=== PATIENT | male | born 1945 | race African-American/Black ===

== ENCOUNTER 2017-02-17 09:50 | Emergency (ER) | payer OTHER ==
[2017-02-17 09:56] VITALS: BP 140/86; BMI 28.6
[2017-02-17] MEDS ORDERED: TORADOL 60 MG VIAL IM ONE (10:26)
--- NOTE | 2017-02-17 10:26 | DR.EXTPAIN ---
HPI - Time seen Time seen: 10:20 - PCP Primary Care Physician: NFD - Complaint/Symptoms Chief Complaint Doctor Comments: patient admits to arthritis of left knee, has been hurting for six days, recently came to area to look for housing planning to move to [facility]. Chief Complaint:: PT STATES " THIS O LEG HAS BEEN PAINING ME FOR A FEW DAYS " PT DENIES ANY INJURY ,, NO EDEMA , SWELLNG OR DEFORMITY NOTED,, PT STATTES " ITS MY LEFT KNEE IT MAY BE GOING OUT I HAVE ALREADY HAD SURGERY ON THE OTHER ONE ".. Self Treatment fo Chief Complaint: BC POWDERS , PT IS USING A CRUTCH - Source History Provided: Patient - Mode of arrival Mode of Arrival: Ambulatory - Timing Onset of Chief Complaint: 02/14/17 PMH - PMH Past Medical History: No Past Medical History Comment: BURNING IN THE FEET I THINK I MAY HAVE SURGAR. Past Surgical History: Yes Past Surgical History Comment: KNEE, ANKLE - Family History History of Family Medical Conditions: Yes Family Medical History: Cancer - Social History Does patient currently use any type of tobacco product: Yes Have you used tobacco products in the last 12 months: Yes Type of Tobacco Use: Cigarettes How many years tobacco product used: 52 Does any household member use tobacco: No Alcohol Use: Rarely Do you use any recreational Drugs:: No Lives With: Family Lives Where: Home - infectious screening In the last 2 months have you had wt loss of >10#?: NO Have you had fever, night sweats or hemotysis?: No Have you traveled outside the country in the last 6 months?: No Isolation: Standard ROS - Review of Systems Constitutional: No Symptoms Reported Eyes: No Symptoms Reported ENTM: No Symptoms Reported Respiratoy: No Symptoms Reported Cardiovascular: No Symptoms Reported Gastrointestinal/Abdominal: No Symptoms Reported Genitourinary: No Symptoms Reported Neurological: No Symptoms Reported Musculoskeletal: Left, Knee (pain) Integumentary: No Symptoms Reported Hematologic/Lymphatic: No Symptoms Reported Endocrine: No Symptoms Reported Psychiatric: No Symptoms Reported All Other Systems: Reviewed and Negative PE - Vital Signs Vitals: Temperature 98.4 F Pulse Rate 94 Respiratory Rate 22 Blood Pressure 140/86 O2 Sat by Pulse Oximetry 95 - General General Appearance: Alert, In No Apparent Distress - Head Head Exam: Normal Inspection, Atraumatic - Eyes Eye exam: Normal Appearance, PERRL, EOMI - ENT ENT Exam: Normal Exam - Neck Neck Exam: Normal Inspection, Full ROM - Chest Chest Inspection: Normal Inspection - Respiratory Respiratory Exam: Normal Lung Sounds Bilat Respiratory Exam: Bilateral Clear to Auscultation - Cardiovascular Cardiovascular Exam: Regular Rate, Normal Rhythm - Abdominal Exam Abdominal Exam: Normal Inspection Abdominal Tenderness: negative: RUQ, RLQ, LUQ, LLQ, Epigastrium, Suprapubic, Diffuse, Mild, Moderate, Severe, Other - Extremities Extremities Exam: Normal Inspection, Full ROM - Upper Extremities Shoulder Exam: Normal Inspection, Full ROM Arm Exam: Normal Inspection Elbow Exam: Normal Inspection Forearm Exam: Normal Inspection Hand Exam: Normal Inspection Neuromotor Exam: Normal Exam Neurosensory Exam: Normal Exam Hand Tendon Exam: Flexor Digitorium Profundus (Location) Upper Ext. Vascular Exam: Capillary Refill - Lower Extremities Hip/Pelvis Exam: Normal Inspection, Full ROM Upper Leg Exam: Normal Inspection Knee Exam: Normal Inspection, Tenderness (superior) Lower Leg Exam: Normal Inspection Ankle Exam: Normal Inspection Foot/Toe Exam: Normal Inspection Neurovascular/Tendon Exam: Normal Capillary Refill Gait Exam: Observed and Normal - Back Back Exam: Normal Inspection, (R) CVA Tenderness - Neurological Neurological Exam: Alert, Oriented X3, CN II-XII Intact - Psychiatric Psychiatric Exam: Normal Affect - Skin Skin Exam: Warm, Dry, Intact Type of Lesion: Rash Distribution: Generalized ROR - XRAY XRAY Interpreted by: Radiologist (Mild patellofemoral and medial femorotibial compartment osteoarthrosis without acute fracture) - Diagnosis Discharge Problem: Osteoarthritis Qualifiers: Osteoarthritis location: knee Osteoarthritis type: unspecified Laterality: left Qualified Code(s): M17.12 - Unilateral primary osteoarthritis, left knee - Discharge Plan Condition: Stable - Follow ups/Referrals Follow ups/Referrals: NFD,None [Primary Care Provider] - 3 days - Instructions
[2017-02-17] MEDS ORDERED: TORADOL 60 MG VIAL ONE (10:37)
--- NOTE | 2017-02-17 11:33 | RAD ---
Three views of the left knee Indication: Left knee pain without injury Findings: There is mild patellofemoral and medial femorotibial compartment joint space loss and oste ophyte formation. No acute fracture or dislocation. No suprapatellar joint effusion. Moderate calcif ied atherosclerotic disease of the SFA. Impression: Mild patellofemoral and medial femorotibial compartment osteoarthrosis without acute fra cture, dislocation or suprapatellar joint effusion. Reported By:
== END 2017-02-17 11:41 | disposition home or self-care (01) ==
LOC: ER 10:08
DX: M17.12 Unilateral primary osteoarthritis, left knee (principal)
CPT/HCPCS: 73560; 96372; 99282; J1885

== ENCOUNTER 2017-08-12 11:07 | Emergency (ER) | payer MEDICAID, OTHER ==
[2017-08-12 11:11] VITALS: BP 137/71; BMI 28.1
[2017-08-12] MEDS ORDERED: TORADOL 60 MG VIAL IM ONE (12:23)
--- NOTE | 2017-08-12 12:25 | DR.TOOTHHP ---
HPI - Time Seen Time seen: 12:20 - Primary Care Physician Primary Care Physician: NFD - Complaints Chief Complaint Doctors Comments: Patient with dental caries complaint of toothache. Chief Complaint:: PATIENT STATED THAT HE HAS HAD A TOOTHACHE ALL LAST NIGHT AND THAT HIS LEFT LEG IS HURTING. - Source History Provided: Patient - Mode of Arrival Mode of Arrival: Ambulatory - Timing Onset of Chief Complaint: 08/12/17 PMH - PMH Past Medical History: No Past Surgical History: Yes Surgical History: Ortho Surgery - Family History History of Family Medical Conditions: No Family Medical History: Cancer - Social History Does patient currently use any type of tobacco product: Yes Have you used tobacco products in the last 12 months: Yes Type of Tobacco Use: Cigarettes Does any household member use tobacco: No Alcohol Use: Heavy Do you use any recreational Drugs:: No Lives With: Family Lives Where: Home - infectious screening In the last 2 months have you had wt loss of >10#?: NO Have you had fever, night sweats or hemotysis?: No Have you traveled outside the country in the last 6 months?: No Isolation: Standard ROS - Review of Systems Eyes: No Symptoms Reported ENTM: No Symptoms Reported Respiratoy: No Symptoms Reported Cardiovascular: No Symptoms Reported Gastrointestinal/Abdominal: No Symptoms Reported Genitourinary: No Symptoms Reported Neurological: No Symptoms Reported Musculoskeletal: No Symptoms Reported Integumentary: No Symptoms Reported Hematologic/Lymphatic: No Symptoms Reported Endocrine: No Symptoms Reported Psychiatric: No Symptoms Reported All Other Systems: Reviewed and Negative PE - Vital Signs Vitals: Temperature 98.1 F Pulse Rate 98 Respiratory Rate 20 Blood Pressure 137/71 O2 Sat by Pulse Oximetry 99 - General Limitations: No Limitations General Appearance: Alert, In No Apparent Distress - Head Head Exam: Normal Inspection, Atraumatic - Eyes Eye exam: Normal Appearance, PERRL, EOMI - ENT ENT Exam: Normal Exam, Normal Oropharynx External Ear Exam: Normal External Inspection TM/Canal Exam: Bilateral Normal Nose Exam: Normal Nose Exam, Sinus Tenderness Mouth Exam: Normal Inspection Teeth Exam: Dental Caries (multiple) Throat Exam: Normal Inspection - Neck Neck Exam: Normal Inspection - Chest Chest Inspection: Normal Inspection, Symmetric Chest Wall Rise - Respiratory Respiratory Exam: Normal Lung Sounds Bilat Respiratory Exam: Bilateral Clear to Auscultation - Cardiovascular Cardiovascular Exam: Regular Rate - Abdominal Exam Abdominal Exam: Normal Inspection, Normal Bowel Sounds Abdominal Tenderness: negative: RUQ, RLQ, LUQ, LLQ, Epigastrium, Suprapubic, Diffuse, Mild, Moderate, Severe, Other - Extremities Extremities Exam: Normal Inspection, Full ROM - Back Back Exam: Normal Inspection, Full ROM - Neurologic Neurological Exam: Alert, Oriented X3, CN II-XII Intact - Psychiatric Psychiatric Exam: Normal Affect - Skin Skin Exam: Warm, Dry, Intact - Other Exam Other Exam: wnl - Diagnosis Discharge Problem: Toothache - Discharge Plan Condition: Stable - Follow ups/Referrals Follow ups/Referrals: NFD,None [Primary Care Provider] - 3 days - Instructions
[2017-08-12] MEDS ORDERED: TORADOL 60 MG VIAL ONE (12:27)
== END 2017-08-12 12:41 | disposition home or self-care (01) ==
LOC: ER 11:14
DX: K08.89 Other specified disorders of teeth and supporting structures (principal)
CPT/HCPCS: 96372; 99282; J1885